=== PATIENT | female | born 1960 | race Caucasian/White ===

== ENCOUNTER 2018-05-08 06:14 | Day surgery (SDC) | payer OTHER ==
[2018-05-08] VITALS (11 sets, daily range): BP systolic 134–161; BP diastolic 66–84; PULSE 63–75; RESP 15–19; Ht 167.6 cm; Wt 130.5 kg
[~2018-05-08] VITALS: Ht 167.6 cm; Wt 130.5 kg
[2018-05-08] MEDS ORDERED: LIDOCAINE 1% (MPF) 30 ML INJ ONE (06:44)
[2018-05-08] MEDS ORDERED: BUPIVACAINE 0.25% (MPF) 30 ML INJ ONE (06:44)
[2018-05-08] MEDS ORDERED: ASPI-903 PO (06:57)
[2018-05-08] MEDS ORDERED: LISI-471 PO (06:57)
[2018-05-08] MEDS ORDERED: ASPI-817 PO (06:58)
--- NOTE | 2018-05-08 06:58 | PREAC ---
Date/Time of Note Date/Time of Note DATE: 05/08/18 TIME: 06:54 Anesthesia Eval and Record Evaluation Time Pre-Procedure Interview DATE: 05/08/18 TIME: 06:54 Age 57 Sex female NPO: 8 hrs sip H20 with Lisinopril Preoperative diagnosis sebaceous cyst scalp Planned procedure excision sebaceous cyst scalp Past Medical History Past Medical History: Includes Cardio: HTN, Dyslipidemia Pulm: Sleep Apnea, Home CPAP Musculoskeletal: Osteoarthritis GI: Morbid obesity (BMI 46) Surgery & Anesthesia Issues No known issue Meds Anticoagulation: Yes (ASA 81 mg taken 2 days ago) Beta Adelia within 24 hr: No Reason Beta Adelia not given: Pt. not on B-Adelia Meds reviewed: Yes Allergies Coded Allergies: No Known Allergy (Unverified , 05/07/18) Allergies Reviewed: Yes Labs/Studies Labs Reviewed: Other (none) test: N/A Pre-procedure Exam Airway: Adequate mouth opening, Adequate thyromental dist Mallampati: Mallampati III Teeth: Normal Lung: Normal Heart: Normal ASA Physical Status ASA physical status: 3 Emergency: None Planned Anesthetic General/MAC: MAC (pt will be straight local, without IV sedation, per hospital policy anesthesia team will be on standby ) Planned Pain Management Local by surgeon Pre-operative Attestations Prior to commencing anesthesia and surgery, the patient was re-evaluated, there was verification of: *The patient's identity *The results of appropriate recent lab work and preoperative vital signs *The above evaluation not changing prior to induction *Anesthetic plan, risk benefits, alternative and complications discussed with patient/family; questions answered; patient/family understands, accepts and wishes to proceed. CARLY GARCIA May 08, 2018 06:58
[2018-05-08] MEDS ORDERED: LACTATED RINGER'S 1,000 ML IV SCH (07:00)
[2018-05-08] MEDS ORDERED: ACETAMINOPHEN 500 MG TAB PO PRN (07:30)
[2018-05-08] MEDS ORDERED: ONDANSETRON 4 MG INJ IV PRN ×2 (07:30→08:00)
[2018-05-08] MEDS ORDERED: FENTAnyl 50 MCG/ML VIAL IV PRN ×3 (07:30)
[2018-05-08] MEDS ORDERED: hydrALAzine 20 MG INJ IV PRN (07:30)
[2018-05-08] MEDS ORDERED: OXYCODONE/ACETAMINOPHEN (5/325) TAB PO PRN ×4 (07:30→08:00)
[2018-05-08] MEDS ORDERED: MIDAZOLAM 1 MG/ML 2 ML INJ ONE (07:37)
[2018-05-08] MEDS ORDERED: CEFAZOLIN 1 GM INJ ONE (07:38)
[2018-05-08] MEDS ORDERED: morphine 2 MG INJ IV PRN (08:00)
--- NOTE | 2018-05-08 08:01 | OPR ---
Date/Time of Note Date/Time of Note DATE: 05/08/18 TIME: 07:57 Operative Report Procedure Date: May 08, 2018 Preoperative Diagnosis 3 cm sebaceous cyst scalp Postoperative Diagnosis 3 cm sebaceous cyst scalp Operation/Procedure Performed Excision Surgeon Cece Stoll MD [employer] Work[employer] None Anesthesia Type: other (Local) Anesthesiologist: CARLY GARCIA Estimated Blood Loss: minimal Transfusion none Specimen Sebaceous cyst and overlying skin ellipse Grafts/Implants none Tubes/Drains None Complications none Pt Condition Post Procedure: stable Disposition: PACU Indications Enlarging and symptomatic Procedure Description The patient was placed in the supine position and the forehead scalp was minimally shaved and prepped. A 3 cm skin ellipse was marked encompassing the underlying sebaceous cyst. The skin ellipse and tissues around the cyst were infiltrated with 10 cc of an equal parts mixture of 1% plain lidocaine and 0.25% plain Marcaine. The skin ellipse was scored sharply. The skin ellipse and his underlying sebaceous cyst were dissected from surrounding tissues using sharp dissection and delivered fully intact and submitted. Hemostasis was completed with electrocautery. The wound was closed with interrupted simple and vertical mattress sutures of 3-0 Prolene. Dermabond was applied and the procedure completed. Sponge and needle counts were reported as correct x2. CECE ARVIZU MD May 08, 2018 08:01
--- NOTE | 2018-05-08 08:05 | PAC ---
Date/Time of Note Date/Time of Note DATE: 05/08/18 TIME: 08:04 Post-Anesthesia Notes Post-Anesthesia Note Last documented vital signs BP 159/60 HR 67 RR 14 Spo2 93% Temp 98.9 Activity: WNL Respiratory function: WNL Cardiovascular function: WNL Mental status: Baseline Pain reasonably controlled: Yes Hydration appropriate: Yes Nausea/Vomiting absent: Yes CARLY GARCIA May 08, 2018 08:05
[2018-05-08] MEDS ORDERED: hydrALAzine 20 MG INJ ONE (08:07)
== END 2018-05-08 09:39 | disposition home or self-care (01) ==
LOC: SDS 06:14
PROVIDERS: ATTEND Surgery
DX: L72.11 Pilar cyst (principal); I10 Essential (primary) hypertension; E78.5 Hyperlipidemia, unspecified; G47.30 Sleep apnea, unspecified
CPT/HCPCS: 11423; J0360; J0690; Z7512; Z7610; 88304; J2250